=== PATIENT | female | born 1990 | race Two or more races ===

== ENCOUNTER → 2025-02-21 | Emergency (ER) | payer OTHER ==
[~2025-02-21] VITALS: Ht 154.9 cm; Wt 65.8 kg
[~2025-02-21] MED LIST: NEOSPORIN + P28.3 GM TOP
== END | disposition home or self-care (01) ==
LOC: ER 13:18
DX: S01.512A Laceration without foreign body of oral cavity, initial encounter (principal); V49.9XXA Car occupant (driver) (passenger) injured in unspecified traffic accident, initial encounter; Y93.89 Activity, other specified; Y92.89 Other specified places as the place of occurrence of the external cause; Y99.8 Other external cause status